=== PATIENT | female | born 1985 | race Caucasian/White ===

== ENCOUNTER 2016-10-15 17:34 | Emergency (ER) | payer OTHER ==
[~2016-10-15] VITALS: Ht 154.9 cm; Wt 81.7 kg
[~2016-10-15 17:34] MED LIST: BACTRIM DS TAB1 EACH PO; NOHOMEMEDICATIONS
[2016-10-15] MEDS ORDERED: HYDRALAZINE 10M10 MG GT (19:46)
[2016-10-15] MEDS ORDERED: OXYCODONE HCL 55 MG PO (19:48)
[2016-10-15] MEDS ORDERED: ZANTAC 150MG T150 MG PO (19:49)
[2016-10-15 20:04] LABS: ABSOLUTE NEUTROPHILS 3.3 thou/uL (1.4-8.2); BASOPHILS 0.5 % (0.0-2.0); EOSINOPHILS 0.4 % (0.0-3.0); HEMATOCRIT 34.5 % (37.0-47.0); HEMOGLOBIN 10.8 gm/dL (12.0-15.0); LYMPHOCYTES 50.5 % (24.0-44.0); MCH 25.6 pg (26.0-34.0); MCHC 31.4 % (28.0-37.0); MCV 81.7 fL (80.0-100.0); PLATELET COUNT 215 thou/uL (150-400); POLYS 43.6 % (36.0-66.0); RBC 4.22 mil/uL (4.20-5.00); RDW 18.5 % (10.5-14.5); WBC 7.5 thou/uL (4.0-11.0)
[2016-10-15 20:05] LABS: URINE BILIRUBIN NEGATIVE (Negative); URINE BLOOD 3+ (Negative); URINE COLOR ORANGE; URINE GLUCOSE-RANDOM* NEGATIVE (Negative); URINE KETONES NEGATIVE (Negative); URINE NITRITE NEGATIVE (Negative); URINE PROTEIN (DIPSTICK) TRACE (Negative); URINE UROBILINOGEN 0.2 E.U./dl (0.2-1.0)
[2016-10-15 20:07] LABS: MANUAL DIFF NO
[2016-10-15 20:15] LABS: ANION GAP 13 mmol/L (7-16); BUN 6 mg/dL (7-18); CALCIUM 8.3 mg/dL (8.5-10.1); CHLORIDE 104 mmol/L (98-107); CO2 27 mmol/L (21-32); CREATININE 0.6 mg/dL (0.6-1.3); GLUCOSE 110 mg/dL (70-99); POTASSIUM 3.1 mmol/L (3.5-5.1); SODIUM 144 mmol/L (136-145)
[2016-10-15 20:16] LABS: SQUAMOUS >10 Many /LPF (0-3)
[2016-10-15 20:17] LABS: URINE RBC >20 Many /HPF (0-2)
[2016-10-15 20:18] LABS: BACTERIA 1-9 Few /HPF (None Seen); CASTS None Seen /LPF (None Seen); CRYSTALS None Seen /LPF (None Seen)
[2016-10-15 20:21] LABS: ALBUMIN 3.6 g/dL (3.4-5.0); ALKALINE PHOSPHATASE 145 U/L (46-116); DIRECT BILIRUBIN < 0.1 mg/dL (<0.1-0.3); SGOT 141 U/L (15-37); SGPT 107 U/L (30-65); TOTAL BILIRUBIN 0.2 mg/dL (<0.1-1.0); TOTAL PROTEIN 8.6 g/dL (6.4-8.2)
[2016-10-15] MEDS ORDERED: MACROBID 100 M100 M1 PO (21:16)
[2016-10-15 21:25] VITALS: BP 114/84
[2016-10-15 22:45] LABS: AMP/METHAMP Negative (Negative); BARBITURATES Negative (Negative); BENZODIAZEPINES Negative (Negative); COCAINE Negative (Negative); METHADONE Negative (Negative); OPIATES Negative (Negative); PCP Negative (Negative); THC Negative (Negative)
== END 2016-10-15 21:29 | disposition home or self-care (01) ==
LOC: ER 17:34
PROVIDERS: Nurse Practitioner
DX: N39.0 Urinary tract infection, site not specified (principal); F10.129 Alcohol abuse with intoxication, unspecified; F31.9 Bipolar disorder, unspecified; F43.10 Post-traumatic stress disorder, unspecified; F12.10 Cannabis abuse, uncomplicated; Z98.890 Other specified postprocedural states; Z88.5 Allergy status to narcotic agent

== ENCOUNTER 2017-02-01 21:56 | Emergency (ER) | payer OTHER ==
[~2017-02-01] VITALS: Ht 154.9 cm; Wt 68.0 kg
--- NOTE | ~2017-02-01 | EKG ---
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
[~2017-02-01 21:56] MED LIST changes: +HYDRALAZINE 10M10 MG GT; +MACROBID 100 M100 M1 PO; +NAPROSYN500 MG PO; +OXYCODONE HCL 55 MG PO; +ZANTAC 150MG T150 MG PO
[2017-02-01] MEDS ORDERED: NORVASC10 MG PO (21:59)
[2017-02-01] MEDS ORDERED: HYDROCHLOROTH12.5 M1 PO (22:00)
[2017-02-01 22:47] LABS: HEMATOCRIT 29.8 % (37.0-47.0); HEMOGLOBIN 9.3 gm/dL (12.0-15.0); MCH 25.8 pg (26.0-34.0); MCHC 31.1 g/dL (28.0-37.0); MCV 82.9 fL (80.0-100.0); PLATELET COUNT 205 thou/uL (150-400); RBC 3.59 mil/uL (4.20-5.00); RDW 19.7 % (10.5-14.5); WBC 5.8 thou/uL (4.0-11.0)
[2017-02-01 22:57] LABS: MANUAL DIFF YES
[2017-02-01 23:01] LABS: ALBUMIN 2.8 g/dL (3.4-5.0); ALKALINE PHOSPHATASE 135 U/L (46-116); ANION GAP 11 mmol/L (7-16); BUN 3 mg/dL (7-18); CHLORIDE 106 mmol/L (98-107); CO2 25 mmol/L (21-32); CREATININE 0.6 mg/dL (0.6-1.0); GLUCOSE 102 mg/dL (74-106); SGOT 56 U/L (15-37); SGPT 34 U/L (30-65); SODIUM 142 mmol/L (136-145); TOTAL BILIRUBIN 0.2 mg/dL (<0.1-1.0); TOTAL PROTEIN 8.3 g/dL (6.4-8.2); TROPONIN-I < 0.04 ng/mL (<0.04-0.07)
[2017-02-01 23:29] LABS: ABSOLUTE NEUTROPHILS 2.6 thou/uL (1.4-8.2); TOTAL CELL COUNT 100
[2017-02-01 23:30] LABS: ANISOCYTOSIS 2+; MACROCYTES 1+; MICROCYTES 1+
[2017-02-02 03:27] VITALS: BP 110/50
== END 2017-02-02 03:29 | disposition home or self-care (01) ==
LOC: ER 21:56
PROVIDERS: Nurse Practitioner Family
DX: E87.6 Hypokalemia (principal); F10.129 Alcohol abuse with intoxication, unspecified; F31.9 Bipolar disorder, unspecified; F12.10 Cannabis abuse, uncomplicated; Z88.5 Allergy status to narcotic agent

== ENCOUNTER 2021-07-06 16:54 | Emergency (ER) | payer OTHER ==
[~2021-07-06 16:54] MED LIST changes: +HYDROCHLOROTH12.5 M1 PO; +NORVASC10 MG PO
== END 2021-07-06 17:25 | disposition left against medical advice (07) ==
LOC: ER 16:54
DX: F10.129 Alcohol abuse with intoxication, unspecified (principal); Z53.21 Procedure and treatment not carried out due to patient leaving prior to being seen by health care provider; Z88.5 Allergy status to narcotic agent